=== PATIENT | female | born 2000 | race Caucasian/White ===

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

== ENCOUNTER 2021-05-05 17:01 | Inpatient (IN) | payer BC, OTHER ==
[~2021-05-05] VITALS: Ht 167.6 cm; Wt 53.1 kg
[~2021-05-05 17:01] MED LIST: BENADRYL25 MG PO; BENTYL 20MG TAB20 MG PO; COLACE 100MG C100 MG PO; EPIPEN 2-P0.3 MG/0.3 INJ; IBUPROFEN600 MG PO; LORTAB 5-325 M1 EACH PO; PHENERGAN 12.12.5 MG PR; PREDNISONE 50 M50 MG PO; SYNTHROID75 MCG PO; ZOFRAN ODT 4 MG4 MG SL
[2021-05-05 18:10] LABS: HEMOGLOBIN 12.4 gm/dl (12.3-15.3); RED BLOOD COUNT 3.91 M/UL (4.00-5.10); WHITE BLOOD COUNT 8.9 K/UL (4.5-11.0)
[2021-05-05] MEDS ORDERED: PRENATA CHEWAB1 EACH PO (18:40)
[2021-05-06] MEDS ORDERED: IBUPROFEN600 MG PO (12:37)
[2021-05-06] MEDS ORDERED: DOCUSATE SODIU100 MG PO (12:37)
[2021-05-07 05:10] LABS: HEMOGLOBIN 11.4 gm/dl (12.3-15.3)
== END 2021-05-08 16:04 | disposition home or self-care (01) | DRG 807 ==
LOC: GENOP 17:01 → OB 17:29
PROVIDERS: ADMIT Obstetrics & Gynecology
PROC: 10E0XZZ Delivery of Products of Conception, External Approach (ICD-10-PCS; principal; 2021-05-06)
PROC: 10907ZC Drainage of Amniotic Fluid, Therapeutic from Products of Conception, Via Natural or Artificial Opening (ICD-10-PCS; 2021-05-06)
PROC: 0U7C7ZZ Dilation of Cervix, Via Natural or Artificial Opening (ICD-10-PCS; 2021-05-06)
PROC: 3E033VJ Introduction of Other Hormone into Peripheral Vein, Percutaneous Approach (ICD-10-PCS; 2021-05-06)
DX: O36.5930 Maternal care for other known or suspected poor fetal growth, third trimester, not applicable or unspecified (principal); Z37.0 Single live birth; O99.284 Endocrine, nutritional and metabolic diseases complicating childbirth; E03.9 Hypothyroidism, unspecified; Z20.822 Contact with and (suspected) exposure to COVID-19; Z3A.37 37 weeks gestation of pregnancy
CPT/HCPCS: 36415; 51702; 81001; 82800; 85014; 85018; 85025; 90471; J2405; J2590; J7030; J7120; U0002